=== PATIENT | female | born 1955 | race Caucasian/White ===

== ENCOUNTER 2016-06-08 08:57 | Emergency (ER) | payer OTHER ==
[~2016-06-08] VITALS: Ht 167.6 cm; Wt 84.0 kg
[2016-06-08 08:58] VITALS: BP 161/72; PULSE 87; RESP 16; TEMP 98.2; O2SAT 99
[2016-06-08] MEDS ORDERED: SODIUM CHLOR 0.9% 1000 ML INJ 1,000 ML IV SCH (09:38)
[2016-06-08] MEDS ORDERED: LEVO.1 PO (09:40)
[2016-06-08] MEDS ORDERED: LOVA40TA PO (09:41)
[2016-06-08] MEDS ORDERED: CITA20TA4 PO (09:41)
[2016-06-08 09:44] VITALS: RESP 16; O2SAT 99
[2016-06-08] MEDS ORDERED: metroNIDAZOLE 500 MG INJ 100 ML IV ONE (09:45)
[2016-06-08] MEDS ORDERED: CIPROFLOXACIN 400 MG PREMIX 200 ML IV ONE (09:45)
[2016-06-08] MEDS ORDERED: SODIUM CHLORIDE 0.9% FLUSH 10 ML FLUSH IV FLUSH PRN (09:45)
[2016-06-08 10:04] LABS: AUTOMATED NEUTROPHIL # 6.1 TH/MM3 (1.8-7.7); BASOPHIL # 0.1 TH/MM3 (0-0.2); BASOPHIL % 0.9 % (0.0-2.0); EOSINOPHIL % 0.4 % (0.0-4.0); HEMATOCRIT 38.6 % (35.0-46.0); HEMO FLAGS DIFF FINAL; LYMPH % 13.9 % (9.0-44.0); LYMPHOCYTE # 1.2 TH/MM3 (1.0-4.8); MEAN CELL VOLUME 96.3 FL (80.0-100.0); MEAN CORPUSCULAR HEMOGLOBIN 32.8 PG (27.0-34.0); MONO % 11.4 % (0.0-8.0); NEUT % 73.4 % (16.0-70.0); PLATELET COUNT 156 TH/MM3 (150-450); RED BLOOD COUNT 4.01 MIL/MM3 (4.00-5.30); RED CELL DISTRIBUTION WIDTH 12.9 % (11.6-17.2); WHITE BLOOD COUNT 8.4 TH/MM3 (4.0-11.0)
--- NOTE | 2016-06-08 10:04 | PD ---
HPI Chief Complaint: Abdominal Pain Time Seen by Provider: 09:31 Travel History International Travel<30 days: No Contact w/Intl Traveler<30days: No Traveled to known affect area: No History of Present Illness HPI This is a 60-year-old female who presents to the emergency department with lower abdominal pain that's been going on for 3 days, constant, moderate severity, associated with a fever to 100.9 yesterday. She's not had any nausea or vomiting. She denies any diarrhea. She thought she had a urinary tract infection and she went to an urgent care where they performed a urinalysis which was negative for infection and they referred her here for concern for diverticulitis. Patient says she has had diverticulitis in the past 10 years ago. She also has a significant family history of diverticulitis and her mother from complications of a perforated diverticuli and her brother got very ill from perforated diverticulitis in the past. PFSH Past Medical History Anxiety: Yes Cardiovascular Problems: Yes High Cholesterol: Yes Diminished Hearing: No Gastrointestinal Disorders: Yes (DIVERTICULITIS) Psychiatric: Yes (DEPRESSION) Thyroid Disease: Yes Tetanus Vaccination: < 5 Years Influenza Vaccination: No Menopausal: Yes Past Surgical History Abdominal Surgery: Yes Cholecystectomy: Yes Social History Alcohol Use: Yes (OCASSIONALLY) Tobacco Use: No Substance Use: No Allergies-Medications (Allergen,Severity, Reaction): Coded Allergies: Cephalexin (Verified Allergy, Intermediate, HIVES, 06/08/16) Reported Meds & Prescriptions Reported Meds & Active Scripts Active Reported Lovastatin 40 Mg Tab 40 Mg PO DAILY@1600 Citalopram (Citalopram Hydrobromide) 20 Mg Tab 20 Mg PO DAILY@1600 Synthroid (Levothyroxine Sodium) 100 Mcg Tab 100 Mcg PO DAILY Review of Systems Except as stated in HPI: all other systems reviewed are Neg Physical Exam Narrative GENERAL:Well appearing, no acute distress SKIN: Warm and dry. HEAD: Atraumatic. Normocephalic. EYES: Pupils equal and round. No injection or drainage. ENT: Moist mucous membranes NECK: Trachea midline. CARDIOVASCULAR: Regular rate and rhythm. No murmur appreciated. RESPIRATORY: Clear to auscultation. Breath sounds equal bilaterally. GASTROINTESTINAL: Abdomen soft, tender to palpation in the suprapubic region and left lower quadrant with no rebound or guarding. MUSCULOSKELETAL: No obvious deformities. NEUROLOGICAL: Awake and alert. No obvious cranial nerve deficits. Moving all extremities. PSYCHIATRIC: Appropriate mood and affect; insight and judgment normal. Data Data Last Documented VS Vital Signs Date Time Temp Pulse Resp B/P Pulse Ox O2 Delivery O2 Flow Rate FiO2 06/08/16 10:47 97.8 89 16 132/76 100 Room Air Orders Complete Blood Count With Diff (06/08/16 09:38) Comprehensive Metabolic Panel (06/08/16 09:38) Lipase (06/08/16 09:38) Ct Abd/Pel W Iv Contrast(Rout) (06/08/16 09:38) Iv Access Insert/Monitor (06/08/16 09:38) Ecg Monitoring (06/08/16 09:38) Oximetry (06/08/16 09:38) Sodium Chlor 0.9% 1000 Ml Inj (Ns 1000 M (06/08/16 09:38) Sodium Chloride 0.9% Flush (Ns Flush) (06/08/16 09:45) Ciprofloxacin 400 Mg Premix (Cipro 400 M (06/08/16 09:45) Metronidazole 500 Mg Inj (Flagyl 500 Mg (06/08/16 09:45) Urinalysis - C+S If Indicated (06/08/16 10:28) Iohexol 350 Inj (Omnipaque 350 Inj) (06/08/16 10:33) Labs Laboratory Tests Test 06/08/16 09:21 White Blood Count 8.4 TH/MM3 Red Blood Count 4.01 MIL/MM3 Hemoglobin 13.1 GM/DL Hematocrit 38.6 % Mean Corpuscular Volume 96.3 FL Mean Corpuscular Hemoglobin 32.8 PG Mean Corpuscular Hemoglobin 34.0 % Concent Red Cell Distribution Width 12.9 % Platelet Count 156 TH/MM3 Mean Platelet Volume 9.0 FL Neutrophils (%) (Auto) 73.4 % Lymphocytes (%) (Auto) 13.9 % Monocytes (%) (Auto) 11.4 % Eosinophils (%) (Auto) 0.4 % Basophils (%) (Auto) 0.9 % Neutrophils # (Auto) 6.1 TH/MM3 Lymphocytes # (Auto) 1.2 TH/MM3 Monocytes # (Auto) 1.0 TH/MM3 Eosinophils # (Auto) 0.0 TH/MM3 Basophils # (Auto) 0.1 TH/MM3 CBC Comment DIFF FINAL Differential Comment Sodium Level 138 MEQ/L Potassium Level 4.2 MEQ/L Chloride Level 102 MEQ/L Carbon Dioxide Level 28.9 MEQ/L Anion Gap 7 MEQ/L Blood Urea Nitrogen 10 MG/DL Creatinine 0.98 MG/DL Estimat Glomerular Filtration 58 ML/MIN Rate Random Glucose 149 MG/DL Calcium Level 8.9 MG/DL Total Bilirubin 0.9 MG/DL Aspartate Amino Transf 21 U/L (AST/SGOT) Alanine Aminotransferase 38 U/L (ALT/SGPT) Alkaline Phosphatase 109 U/L Total Protein 7.4 GM/DL Albumin 3.7 GM/DL Lipase 220 U/L MDM Medical Decision Making Medical Screen Exam Complete: Yes Emergency Medical Condition: Yes Interpretation(s) Afebrile, no tachycardia, hypertensive No leukocytosis 73% neutrophils Electrolytes are reassuring Lipase is normal CT abdomen and pelvis demonstrates diverticulitis with no perforation or abscess Differential Diagnosis Diverticulitis, colitis, appendicitis, diverticular abscess, perforation Narrative Course This is a 60-year-old female who has a history of diverticulitis who presents to the emergency department with lower abdominal discomfort. She was placed on a monitor and an IV was established. Labs are obtained which were all reassuring with no leukocytosis. She is afebrile. She is quite well- appearing. CT abdomen and pelvis confirms diverticulitis with no evidence of perforation or abscess. She was given a dose of ciprofloxacin and Flagyl IV as well as IV hydration. I had a conversation with the patient regarding discharge versus admission. She is amenable to trying to manage this outpatient. She has an appointment with her primary care physician in 4 days. I advised her that if she has any change or worsening in her pain or she feels sicker she should have a low threshold to return to the emergency department. Diagnosis Primary Impression: Acute diverticulitis Patient Instructions: General Instructions Additional Instructions: Sometimes patients with diverticulitis require admission to the hospital for IV antibiotics. If you develop worsening or severe abdominal pain, persistent fevers, or inability to drink return to the emergency department. Follow a clear liquid diet for 3 days until you notice your symptoms improving, then slowly advance your diet. Complete your course of antibiotics. Follow up with your primary care physician as soon as possible to ensure you are improving. Med/Other Pt SpecificInfo: Prescription(s) given Scripts Ondansetron Odt (Zofran Odt)4 Mg Tab4 Mg SL Q6HR PRN (Nausea/Vomiting) #15 TAB Prov:Maria Eugenia Wilson MD 06/08/16 Tramadol 50 Mg Tab50 Mg PO Q6H PRN (PAIN) #14 TAB Prov:Maria Eugenia Wilson MD 06/08/16 Metronidazole (Flagyl)500 Mg [id number] Mg PO BID 10 Days Prov:Maria Eugenia Wilson MD 06/08/16 Ciprofloxacin 500 Mg [id number] Mg PO BID 10 Days Prov:Maria Eugenia Wilson MD 06/08/16 Disposition: 01 DISCHARGE HOME Condition: Stable Maria Eugenia Wilson MD Jun 08, 2016 10:04
[2016-06-08 10:21] LABS: ANION GAP 7 MEQ/L (5-15); AST (GOT) 21 U/L (15-37); BICARBONATE 28.9 MEQ/L (21.0-32.0); BLOOD UREA NITROGEN 10 MG/DL (7-18); CHLORIDE 102 MEQ/L (98-107); GLOMERULAR FILTRATION RATE 58 ML/MIN (>89); POTASSIUM 4.2 MEQ/L (3.5-5.1); SODIUM (NA) 138 MEQ/L (136-145)
[2016-06-08 10:24] LABS: ALKALINE PHOSPHATASE 109 U/L (45-117); ALT (GPT) 38 U/L (10-53); TOTAL BILIRUBIN ADULT 0.9 MG/DL (0.2-1.0)
[2016-06-08] MEDS ORDERED: IOHEXOL 350 MG/ML 10 ML VIAL (for RAD DIAG) IV ONE (10:33)
[2016-06-08 10:47] VITALS: BP 132/76; PULSE 89; RESP 16; TEMP 97.8; O2SAT 100
--- NOTE | 2016-06-08 10:48 | RADRPT ---
EXAM DATE/TIME: 06/08/2016 10:24 [facility] COMPARISON: No previous studies available for comparison. INDICATIONS : Lower abdominal pain with fever. IV CONTRAST: 95 cc Omnipaque 350 (iohexol) IV ORAL CONTRAST: No oral contrast ingested. RADIATION DOSE: 10.23 CTDIvol (mGy) MEDICAL HISTORY : Diverticulitis. SURGICAL HISTORY : Cholecystectomy. Right hip replacement. ENCOUNTER: Initial ACUITY: 2 days PAIN SCALE: 4/10 LOCATION: Bilateral lower quadrant TECHNIQUE: Volumetric scanning of the abdomen and pelvis was performed. Using automated exposure control and ad justment of the mA and/or kV according to patient size, radiation dose was kept as low as reasonably achievable to obtain optimal diagnostic quality images. FINDINGS: LOWER LUNGS: The visualized lower lungs are clear. LIVER: Homogeneous density without lesion. There is no dilation of the biliary tree. Status post cholecyste ctomy. SPLEEN: Normal size without lesion. PANCREAS: Within normal limits. KIDNEYS: Normal in size and shape. There is no mass, stone or hydronephrosis. ADRENAL GLANDS: Within normal limits. VASCULAR: There is no aortic aneurysm. BOWEL/MESENTERY: Pericolic inflammatory changes and wall thickening are noted within the region of the proximal sigmoi d colon consistent with acute diverticulitis. No pericolic abscess is noted. ABDOMINAL WALL: Within normal limits. RETROPERITONEUM: There is no lymphadenopathy. BLADDER: No wall thickening or mass. REPRODUCTIVE: Within normal limits. INGUINAL: There is no lymphadenopathy or hernia. MUSCULOSKELETAL: Mild degenerative changes and scoliosis of the lumbar spine are noted. Right total hip replacement is noted. CONCLUSION: 1. Pericolic inflammatory changes and focal wall thickening involving the proximal sigmoid colon cons istent with acute diverticulitis. No pericolic abscess is noted. 2. Mild degenerative changes and scoliosis of the lumbar spine. Jarred Mc MD on June 08, 2016 at 10:42 Board Certified Radiologist. This report was verified electronically.
[2016-06-08] MEDS ORDERED: ZOFR4TAB3 SL (11:00)
[2016-06-08] MEDS ORDERED: CIPR500T2 PO (11:00)
[2016-06-08] MEDS ORDERED: METR-1 PO (11:00)
[2016-06-08] MEDS ORDERED: TRAM50TA PO (11:00)
[2016-06-08 11:05] VITALS: BP 130/77; TEMP 97.8
[2016-06-08 11:05] LABS: BLOOD, URINE NEG (NEG); GLUCOSE,URINE NEG (NEG); KETONE, URINE NEG (NEG); NITRITE,URINE NEG (NEG); PH, URINE 6.5 (5.0-8.5); URINE COLOR LIGHT-YELLOW (YELLW/STRAW)
[2016-06-08 11:30] LABS: COMMENT (UR) CULT NOT INDICATED; CULTURE IF INDICATED CULT NOT INDICATED
== END 2016-06-08 11:05 | disposition home or self-care (01) ==
LOC: NEPC 08:57
DX: K57.92 Diverticulitis of intestine, part unspecified, without perforation or abscess without bleeding (principal); R50.9 Fever, unspecified; E78.00 Pure hypercholesterolemia, unspecified
CPT/HCPCS: 74177; 80053; 81001; 83690; 85025; 96361; 96374; 96375; 99284; J0744; J7030; Q9967